=== PATIENT | female | born 1980 | race Caucasian/White ===

== ENCOUNTER 2016-12-31 03:21 | Emergency (ER) | payer SELFPAY ==
[~2016-12-31] VITALS: Ht 167.6 cm; Wt 68.0 kg
[2016-12-31 03:39] VITALS: BP 141/96; PULSE 105; RESP 16; TEMP 99; O2SAT 100
[2016-12-31 03:47] LABS: BILIRUBIN,URINE 1+ (NEGATIVE); CLARITY/URINE CLEAR (CLEAR); COLOR,URINE YELLOW (YELLOW); GLUCOSE,URINE NEGATIVE (NEGATIVE); KETONES,URINE 3+ (NEGATIVE); LEUKOCYTE ESTERASE ,URINE NEGATIVE (NEGATIVE); NITRITE, URINE NEGATIVE (NEGATIVE); PROTEIN URINE 1+ (NEGATIVE)
[2016-12-31 03:56] LABS: BLOOD, URINE TRACE (NEGATIVE)
[2016-12-31 03:58] LABS: BACTERIA,URINE FEW /HPF (None Seen); MUCUS,URINE None Seen /LPF (None Seen); RBC,URINE 0-3 /HPF (0-3)
[2016-12-31 04:30] VITALS: BP 129/74; PULSE 84; RESP 16; TEMP 99; O2SAT 100
== END 2016-12-31 04:30 | disposition home or self-care (01) ==
LOC: SED 03:21
DX: B34.9 Viral infection, unspecified (principal); M79.1 Myalgia; M54.5 Low back pain; Z88.0 Allergy status to penicillin
CPT/HCPCS: 81000-TC; 81025; 99283